=== PATIENT | female | born 1955 | race Caucasian/White ===

== ENCOUNTER → 2017-01-26 | Outpatient (CLI) | payer OTHER ==
[~2017-01-26] MED LIST: ADVIL200 MG PO; NUVIGIL250 MG PO; OXYGEN M-15; PROVENTIL OR V6.7 GM INH; ZYRTEC10 MG PO
== END | disposition disaster alternative care site (69) ==
LOC: GBCOE 15:02
DX: Z12.31 Encounter for screening mammogram for malignant neoplasm of breast (principal)
CPT/HCPCS: G0202

== ENCOUNTER 2017-03-23 18:44 | Emergency (ER) | payer OTHER ==
--- NOTE | ~2017-03-23 | ER ---
PATIENT'S NAME: ELKIN CASANOVA [facility] AGE: 62 Y [address] ROOM: [place] [address] LOCATION: [facility] ADMIT DATE: 03/23/2017 ER/Outpatient Report DISCHARGE DATE: 03/23/2017 FAMILY PHYSICIAN: Mckayla Holland ATTENDING PHYSICIAN: Selvin Amezcua Admission date and time documented on the medical record. I saw the patient at 1855 hours. CHIEF COMPLAINT: Anxiety, shortness of breath. HISTORY OF PRESENT ILLNESS: This patient is a 61-year-old female, who had an incident at work that made her quite anxious and then she developed increasing shortness of breath. She had little bit of chest discomfort in the right anterior lateral chest. Brought to the emergency room by private vehicle for evaluation. On arrival, the patient was awake, alert, responsive. The patient has chronic O2- dependent asthma. PAST MEDICAL HISTORY: She had past history of paralyzed right diaphragm. No recent coughs, colds, flus, fever, chills, or sweats. No syncope or near syncope. No fall or trauma. No headache, eyes, ears, nose, throat, neck, or spine pain. No abdominal pain, nausea, vomiting, diarrhea, or urinary frequency, urgency, or dysuria. No incontinence of stool or urine. No joint or muscle swelling, redness, or pain. No skin eruptions or rash. No history of endocrine problems, neuro changes, or psych issues. HOME MEDICATIONS: See attached medication list. ALLERGIES: NONE. SOCIAL HISTORY: Nonsmoker, nondrinker. SIGNIFICANT PAST MEDICAL HISTORY: O2-dependent chronic asthma; restrictive lung disease; pneumonia; respiratory failure; seasonal allergies; paralysis, right hemidiaphragm. OPERATIONS: Thoracotomy, bronchoscopy. PATIENT'S NAME: ELKIN CASANOVA [facility] AGE: 62 Y [address] ROOM: [place] [address] LOCATION: [facility] ADMIT DATE: 03/23/2017 ER/Outpatient Report DISCHARGE DATE: 03/23/2017 FAMILY PHYSICIAN: Mckayla Holland ATTENDING PHYSICIAN: Selvin Amezcua REVIEW OF SYSTEMS: All systems reviewed by me are negative with exception of those discussed in the history of present illness. PHYSICAL EXAMINATION: VITAL SIGNS: Temperature 99.3, tympanic; pulse 94; respirations 22; blood pressure 119/73; O2 saturation on 4 L oxygen per nasal cannula is 94%. HEAD: Normocephalic. EYES, EARS, NOSE, THROAT: Clear. Mucous membranes moist. NECK: Negative. LUNGS: Clear. No rales, rhonchi, or wheezes. HEART: Regular. Pulses are palpable. The patient is mildly tachypneic. ABDOMEN: Soft, nondistended, nontender. Active bowel tones. No organomegaly or abnormal masses palpable. EXTREMITIES: Intact. NEUROVASCULAR: Intact. SKIN: Clear. No skin eruptions or rash. LABORATORY DATA: Chest x-ray showed no acute infiltrate. We will review x-ray with the radiologist. EKG showed sinus rhythm. No acute ST elevation, ischemic change, or arrhythmia. White count was normal at 8000, 69 segs, 22 lymphs, 7 monos, 2 eos. Hemoglobin is 13 with hematocrit 39.8, platelet count is 294,000. IMPRESSION: 1. Exacerbation of asthma. 2. O2 dependent at 4 L/minute of oxygen per nasal cannula. 3. Restrictive lung disease. PLAN: The patient dismissed home. Observation. Activity as tolerated. Continue present home medications and care. Prednisone 20 mg b.i.d. for a week. Z- Will, take as directed. Follow up with personal physician as needed. Discussion ensued with the patient concerning my findings and recommendations, she understands. SELVIN AMEZCUA MD SDS/modl PATIENT'S NAME: ELKIN CASANOVA [facility] AGE: 62 Y [address] ROOM: [place] [address] LOCATION: ED ADMIT DATE: 03/23/2017 ER/Outpatient Report DISCHARGE DATE: 03/23/2017 FAMILY PHYSICIAN: Mckayla Holland ATTENDING PHYSICIAN: Selvin Amezcua /[id number] d: 03/24/17 0113 t: 03/26/17 0612, OUTPATIENT REPORT
[2017-03-23 19:17] LABS: BASOPHIL % 0.4 %; EOSINOPHIL # 0.2 K/uL (0.0-0.5); EOSINOPHIL % 2.1 %; HEMATOCRIT 39.8 % (33.0-46.0); IMMATURE GRANULOCYTE % 0.3 %; LYMPHOCYTE # 1.7 K/uL (0.8-4.0); LYMPHOCYTE % 21.5 %; MCH 29.4 pg (27.0-34.0); MCHC 32.7 gm/dL (32.0-36.5); MONOCYTE # 0.5 K/uL (0.0-1.0); MONOCYTE % 6.8 %; MPV 9.8 fl (9.4-12.4); NEUTROPHIL # (ANC) 5.5 K/uL (1.8-7.8); NEUTROPHIL % 68.9 %; NRBC % 0 /100WBC (0-0.00); PLATELET COUNT 294 K/uL (150-450); RBC 4.42 M/uL (3.50-5.50); RDW-CV 12.5 % (11.9-14.6)
== END 2017-03-23 19:45 | disposition disaster alternative care site (69) ==
LOC: GMED 18:44
PROVIDERS: Emergency Medicine
DX: J45.901 Unspecified asthma with (acute) exacerbation (principal); J98.4 Other disorders of lung; J96.90 Respiratory failure, unspecified, unspecified whether with hypoxia or hypercapnia; J98.6 Disorders of diaphragm; G83.9 Paralytic syndrome, unspecified; Z98.890 Other specified postprocedural states; Z79.899 Other long term (current) drug therapy; Z99.81 Dependence on supplemental oxygen

== ENCOUNTER 2017-04-17 19:35 | Emergency (ER) | payer OTHER ==
--- NOTE | ~2017-04-17 | ER ---
PATIENT'S NAME: ELKIN CASANOVA [facility] AGE: 62 Y [address] ROOM: [place] [address] LOCATION: [facility] ADMIT DATE: 04/17/2017 ER/Outpatient Report DISCHARGE DATE: 04/17/2017 FAMILY PHYSICIAN: Mckayla Holland ATTENDING PHYSICIAN: Selvin Colindres Time of Arrival: Time of Evaluation: Admission date and time documented in the medical record. I saw the patient at 1950 hours. CHIEF COMPLAINT: Fall, left wrist injury. HISTORY OF PRESENT ILLNESS: This patient is a 62-year-old female, who fell on an outstretched left arm, extended wrist. The patient has suffered injury when she landed. Presented to the emergency room for evaluation. She has pain across the left wrist. There is some swelling, but no marked deformity. No open wounds. No other injuries. HOME MEDICATIONS: See attached medication list. ALLERGIES: NONE. SOCIAL HISTORY: Nonsmoker. Nondrinker. SIGNIFICANT PAST MEDICAL HISTORY: 1. Asthma, O2 dependent. 2. Obstructive sleep apnea. 3. Paralysis, right diaphragm. 4. Pneumonia. 5. Respiratory failure. PAST SURGICAL HISTORY: Operations: 1. Bronchoscopy. 2. Thoracotomy. REVIEW OF SYSTEMS: All systems reviewed by me are negative with the exception of those discussed in the history of the present illness. PATIENT'S NAME: ELKIN CASANOVA [facility] AGE: 62 Y [address] ROOM: [place] [address] LOCATION: [facility] ADMIT DATE: 04/17/2017 ER/Outpatient Report DISCHARGE DATE: 04/17/2017 FAMILY PHYSICIAN: Mckayla Holland ATTENDING PHYSICIAN: Selvin Colindres PHYSICAL EXAMINATION: VITAL SIGNS: Temperature 99.5, pulse 99, respiratory rate is 28, blood pressure is 143/83, and O2 saturation on room air is 88%. EXTREMITIES: On examination, the left wrist is swollen, tender. No marked deformity. No open wounds. NEUROLOGIC: Neurovascularly intact. Pulse intact. Capillary refill intact. LABORATORY DATA AND IMAGING STUDIES: X-ray shows a fracture, distal left radius. We will review x-ray with the radiologist. IMPRESSION: Fall with fracture of distal left radius. PLAN: The patient was placed in a left cock-up wrist splint, thumb spica, and put in an envelope arm sling. Continue present home medications and care. Ice and elevation. [place] 5/325 as needed for pain. See orthopedic surgeon or personal physician in 2 to 3 days. Follow up on exam. Discussion ensued with the patient concerning my findings and recommendations, she understands. MD DIA ORANTES/modl /[id number] d: 04/17/17 2256 t: 04/18/17 1824, OUTPATIENT REPORT
== END 2017-04-17 20:23 | disposition disaster alternative care site (69) ==
LOC: GACC 19:35
PROC: 2W3DX1Z Immobilization of Left Lower Arm using Splint (ICD-10-PCS; principal; 2017-04-17)
DX: S52.502A Unspecified fracture of the lower end of left radius, initial encounter for closed fracture (principal); J45.909 Unspecified asthma, uncomplicated; Z98.890 Other specified postprocedural states; Z87.01 Personal history of pneumonia (recurrent); Z79.899 Other long term (current) drug therapy; W18.39XA Other fall on same level, initial encounter

== ENCOUNTER → 2017-04-26 | Outpatient (CLI) | payer OTHER ==
--- NOTE | ~2017-04-26 | PUL ---
PATIENT'S NAME: ELKIN CASANOVA [facility] AGE: 62 Y [address] ROOM: [place] [address] LOCATION: [facility] ADMIT DATE: 04/26/2017 Pulmonary DISCHARGE DATE: FAMILY PHYSICIAN: Mckayla Holland ATTENDING PHYSICIAN: Amanda Velasco NAME OF PROCEDURE: Six Minute Walk Test DATE OF PROCEDURE: April 26, 2017 TECH: IDA [place] REASON FOR EXAM: Shortness of breath with exertion RESULTS: The test was done on oxygen 4 liters/minute. The total distance walked was 550 feet. Maximum heart rate was 106 per minute, pretest heart rate was 84 beats per minute, post-test heart rate was 86 beats per minute. Pretest blood pressure was 131/68, post test blood pressure was 113/61. The patient complained of dyspnea and dizziness on exertion, pretest saturation was 91% on 4 liters oxygen which dropped to 84% on the same oxygen; post test saturation was 90% on 4 liters. PHYSICIAN INTERPRETATION: The patient has evidence of significant exercise induced desaturation. Total distance walked in 6 minute walk test was 550 feet. Increase in the oxygen as recommended with exertion so as to keep the saturation 88% or above. MD GIACOMO CAVAZOS/jesus /[id number] dtt: 04/29/17 1201 , JOSEF RAYGOZA dtd: 04/28/17 1317
--- NOTE | ~2017-04-26 | PUL ---
PATIENT'S NAME: ELKIN CASANOVA [facility] AGE: 62 Y [address] ROOM: [place] [address] LOCATION: [facility] ADMIT DATE: 04/26/2017 Pulmonary DISCHARGE DATE: FAMILY PHYSICIAN: Mckayla Holland ATTENDING PHYSICIAN: Amanda Velasco NAME OF PROCEDURE: Pulmonary Function Test DATE OF PROCEDURE: April 26, 2017 TECH: IDA [place] REASON FOR EXAM: Shortness of breath PROCEDURES PERFORMED: Spirometry with bronchodilator assessment. Measurement of maximum voluntary ventilation. Measurement of lung volumes. Measurement of diffusion capacity. RESULTS: Wire Weaver comments ATS standards not met when testing the DLCO and FVL due to the patient's inability for end exhalation. Spirometry showed pre bronchodilator FVC was 0.86 liters, 28% of predicted. Post bronchodilator FVC was 0.87 liters, 28% of predicted. The pre bronchodilator FEV1 was 0.75 liters, 31% predicted. Post bronchodilator FEV1 was 0.74 liters, 31% of predicted. FEV1/FVC was 87, 112% of predicted. FEF25- 75% was 1.06 liters/second, 48% of predicted. Maximum voluntary ventilation was 45 liters/minute, 50% of predicted. Lung volumes showed total lung capacity was 1.84 liters, 39% of predicted. Functional residual capacity was 1.10 liters, 47% of predicted. Residual volume was 0.88 liters, 50% of predicted. Diffusing capacity not adjusted for hemoglobin was 21%. The single breath alveolar volume was 1.54 liters and is a fair estimate of the total lung capacity. Flow volume loop pattern suggests restrictive changes. PHYSICIAN INTERPRETATION: The above data and corresponding flow volume curve are most compatible with severe ventilatory restriction, with severe gas transfer impalement. MD GIACOMO CAVAZOS/jesus PATIENT'S NAME: ELKIN CASANOVA [facility] AGE: 62 Y [address] ROOM: [place] [address] LOCATION: [facility] ADMIT DATE: 04/26/2017 Pulmonary DISCHARGE DATE: FAMILY PHYSICIAN: Mckayla Holland ATTENDING PHYSICIAN: Amanda Velasco /[id number] dtt: 04/29/17 1159 , JOSEF RAYGOZA dtd: 04/28/17 1308
== END | disposition disaster alternative care site (69) ==
LOC: GRTH 12:11
DX: J45.909 Unspecified asthma, uncomplicated (principal)